=== PATIENT | male | born 1940 | race Caucasian/White ===

== ENCOUNTER → 2017-02-25 | Outpatient (CLI) | payer MEDICARE ==
[~2017-02-25] MED LIST: ASPI-496 PO; CEPH-368 PO; GLIM4TAB2 PO; LEVO125T5 PO; LOSA100T6 PO; METF10002 PO; PIOG45TA4 PO; SIMV40TA3 PO; SITA100T PO
== END | disposition home or self-care (01) ==
LOC: CFH 09:59
PROVIDERS: ATTEND Internal Medicine
DX: M47.896 Other spondylosis, lumbar region (principal); M48.07 Spinal stenosis, lumbosacral region; M41.86 Other forms of scoliosis, lumbar region; M25.78 Osteophyte, vertebrae; Z90.49 Acquired absence of other specified parts of digestive tract
CPT/HCPCS: 72110

== ENCOUNTER 2017-05-13 05:38 | Observation (INO) | payer MEDICARE ==
[~2017-05-13] VITALS: Ht 175.3 cm; Wt 84.3 kg
[~2017-05-13 05:38] MED LIST changes: +[UNRECOGNIZED DRUG - REMARK] PO
[2017-05-13 06:20] VITALS: BP 147/78
[2017-05-13] MEDS ORDERED: LIDOCAINE 1%, 2ML ONE (06:31)
[2017-05-13] MEDS ORDERED: LACTATED RINGERS 1,000 ML IV SCH (06:50)
[2017-05-13] MEDS ORDERED: BACITRACIN OINT 500U/GM, 15 GM ONE (06:51)
[2017-05-13] MEDS ORDERED: THROMBIN 5,000 UNIT VIAL TP ONE (06:51)
[2017-05-13] MEDS ORDERED: EPINEPHRINE 1 MG/ML, 1ML ONE (06:51)
[2017-05-13] MEDS ORDERED: BUPIVACAINE/PF 0.5% ONE (06:51)
[2017-05-13] MEDS ORDERED: LIDOCAINE 1%, 2ML SQ PRN (07:00)
[2017-05-13] MEDS ORDERED: FENTANYL PF 100 MCG/2ML ONE ×3 (07:06→07:07)
[2017-05-13] MEDS ORDERED: MIDAZOLAM 1 MG/ML, 2ML ONE (07:07)
[2017-05-13] MEDS ORDERED: GLYCOPYRROLATE 0.2MG/1ML ONE (07:45)
[2017-05-13] MEDS ORDERED: SUCCINYLCHOLINE 20 MG/ML, 10ML ONE (07:45)
[2017-05-13] MEDS ORDERED: CEFAZOLIN 1,000 MG ONE (07:45)
[2017-05-13] MEDS ORDERED: PROPOFOL 10 MG/ML, 20ML ONE (07:45)
[2017-05-13] MEDS ORDERED: DEXAMETHASONE 4 MG/ML, 1ML ONE (07:45)
[2017-05-13] MEDS ORDERED: NEOSTIGMINE 1 MG/ML, 10ML ONE (07:45)
[2017-05-13] MEDS ORDERED: ROCURONIUM 10 MG/ML ONE (07:45)
[2017-05-13] MEDS ORDERED: ONDANSETRON 2MG/ML, 2ML ONE ×2 (07:45→09:34)
[2017-05-13] MEDS ORDERED: DIPHENHYDRAMINE 50 MG/ML, 1ML IVPush PRN (08:00)
[2017-05-13] MEDS ORDERED: morphine SULFATE 10 MG/ML, 1ML IVPush PRN (08:00)
[2017-05-13] MEDS ORDERED: METHOCARBAMOL 750 MG TABLET PO PRN (08:00)
[2017-05-13] MEDS ORDERED: INSULIN REGULAR 100 UNITS/ML, 3ML VIAL SQ-INSULIN PRN (08:00)
[2017-05-13] MEDS ORDERED: MAGNESIUM HYDROXIDE 8%, 30ML UDC PO PRN (08:00)
[2017-05-13] MEDS ORDERED: NS + 20MEQ KCL 1,000 ML IV SCH (08:00)
[2017-05-13] MEDS ORDERED: SENNA/DOCUSATE TABLET PO PRN (08:00)
[2017-05-13] MEDS ORDERED: BISACODYL 10 MG SUPP PR PRN (08:00)
[2017-05-13] MEDS ORDERED: PHARMACY MAY ADJ FOR RENAL FX MC PRN (08:00)
[2017-05-13] MEDS ORDERED: OXYcodone/APAP 5/325MG TABLET PO PRN (08:00)
[2017-05-13] MEDS ORDERED: ONDANSETRON 2MG/ML, 2ML IVPush PRN ×2 (08:00→08:30)
[2017-05-13] MEDS ORDERED: OXYcodone 5 MG/5 ML ORAL.SOL UDC PO PRN (08:30)
[2017-05-13] MEDS ORDERED: hydrALAzine 20 MG/ML, 1ML IV PRN (08:30)
[2017-05-13] MEDS ORDERED: ACETAMINOPHEN 325 MG TABLET PO PRN (08:30)
[2017-05-13] MEDS ORDERED: LABETALOL 5MG/ML, 20ML IV PRN (08:30)
[2017-05-13] MEDS ORDERED: FENTANYL PF 100 MCG/2ML IV PRN (08:30)
[2017-05-13] MEDS ORDERED: METOCLOPRAMIDE 5 MG/ML, 2ML IV PRN (08:30)
[2017-05-13] MEDS ORDERED: GLIMEPIRIDE 4 MG TABLET PO SCH (09:00)
[2017-05-13] MEDS ORDERED: SITAGLIPTIN 50MG TABLET PO SCH (09:00)
[2017-05-13] MEDS ORDERED: PIOGLITAZONE 15 MG TABLET PO SCH (09:00)
[2017-05-13] MEDS ORDERED: LOSARTAN 50MG TABLET PO SCH (09:00)
[2017-05-13] MEDS ORDERED: LEVOTHYROXINE 125 MCG TABLET PO SCH (09:00)
[2017-05-13] MEDS ORDERED: metFORMIN 500 MG TABLET PO SCH (09:00)
[2017-05-13] MEDS ORDERED: OXYcodone 5 MG/5 ML ORAL.SOL UDC ONE (09:30)
[2017-05-13] MEDS ORDERED: ACETAMINOPHEN 325 MG/10.15 ML UDC ONE (09:30)
[2017-05-13] MEDS ORDERED: ACETAMINOPHEN 650 MG/20.3 ML UDC ONE (09:30)
[2017-05-13] MEDS ORDERED: HYDROmorphone 1 MG/ML, 1ML ONE (09:34)
[2017-05-13] MEDS: HYDROmorphone 1 MG/ML, 1ML IV PRN ×2 (09:40→10:00)
[2017-05-13] MEDS ORDERED: SIMVASTATIN 40 MG TABLET PO SCH (21:00)
== END 2017-05-13 16:20 | disposition home or self-care (01) ==
LOC: OUT 05:38 → ORIP 07:53
PROVIDERS: ADMIT Orthopaedic Surgery Orthopaedic Surgery of the Spine; ATTEND Orthopaedic Surgery Orthopaedic Surgery of the Spine
DX: M48.07 Spinal stenosis, lumbosacral region (principal); M51.27 Other intervertebral disc displacement, lumbosacral region
CPT/HCPCS: 63030; 63047; 72100; 82962; G0378; J0171; J0330; J0690; J1100; J1170; J2250; J2405; J2704; J2710; J3010; J3490; J7120